=== PATIENT | male | born 1970 | race Caucasian/White ===

== ENCOUNTER 2020-04-06 23:58 | Emergency (ER) | payer OTHER, MEDICAID ==
[~2020-04-06] VITALS: Ht 180.3 cm; Wt 91.6 kg
[2020-04-07 00:05] VITALS: BP_SYST 155
--- NOTE | 2020-04-07 00:05 | NUR ---
Patient to ER bed 5 to gown for evaluation. Side rails up. Report given to OCTOBER.
--- NOTE | 2020-04-07 00:10 | NUR ---
PT AAO AND AMBULATORY C/O WORSENING TOOTH PAIN SINCE THURSDAY. PT WAS SCHEDULED TO HAVE A TOOTH EXTRACTION ON THE RIGHT SIDE BUT WAS CANCELLED AND RESCHEDULED TIL NEXT WEEK.PT REPORTS 10/10 PAIN IN MOUTH.
--- NOTE | 2020-04-07 00:15 | NUR ---
ER at bedside examining patient.
[2020-04-07] MEDS ORDERED: cefTRIAXone 1 GM in LIDOCAINE 1%, 20 ML MDV 2.1 ML IM ONE (00:30)
[2020-04-07] MEDS ORDERED: KETOROLAC TROMETHAMINE 60 MG/2 ML VIAL IM ONE (00:30)
[2020-04-07 00:59] VITALS: BP_SYST 155
--- NOTE | 2020-04-07 00:59 | NUR ---
Patient given written and verbal discharge instructions and verbalizes understanding. ER MD discussed with patient the results and treatment provided. Patient in stable condition. ID arm band removed. Rx of Penicillin VK 250 mg and Ibuprofen 800 mg given. Patient educated on pain management and to follow up with PMD. Pain Scale 4/10. Opportunity for questions provided and answered. Medication side effect fact sheet provided.
== END 2020-04-07 00:59 | disposition home or self-care (01) ==
LOC: SED 23:58
DX: K05.10 Chronic gingivitis, plaque induced (principal); K08.89 Other specified disorders of teeth and supporting structures; I10 Essential (primary) hypertension; G43.909 Migraine, unspecified, not intractable, without status migrainosus; Z88.5 Allergy status to narcotic agent
CPT/HCPCS: 96372; 99284; J0696; J1885; J2001

== ENCOUNTER 2022-02-08 03:10 | Emergency (ER) | payer OTHER, MEDICAID ==
[~2022-02-08] VITALS: Ht 180.3 cm; Wt 86.2 kg
[2022-02-08 03:17] VITALS: BP_SYST 133
--- NOTE | 2022-02-08 03:21 | NUR ---
PATIENT WOKE UP WITH FEELING OF SOMETHING IS IN HIS EYE, PAIN AND IRRITATION INCREASING. NO TRAUMA NOTED. PATIENT BROUGHT BACK TO BED 2.
[2022-02-08] MEDS ORDERED: TRAM50TA PO (05:02)
[2022-02-08] MEDS ORDERED: OFLO5DRO6 LEFT EYE (05:02)
[2022-02-08] MEDS ORDERED: NAPR-686 PO (05:02)
[2022-02-08] MEDS ORDERED: traMADol HCL HCL 50 MG TABLET (ULTRAM) ONE (05:11)
--- NOTE | 2022-02-08 05:14 | NUR ---
Patient given written and verbal discharge instructions and verbalizes understanding. ER MD discussed with patient the results and treatment provided. Patient in stable condition. ID arm band removed. IV catheter removed intact and dressing applied, no active bleeding. Rx of NAPROXEN given. Patient educated on pain management and to follow up with PMD. Pain Scale . Opportunity for questions provided and answered. Medication side effect fact sheet provided.
[2022-02-08] MEDS ORDERED: traMADol HCL HCL 50 MG TABLET (ULTRAM) PO ONE (05:15)
== END 2022-02-08 05:14 | disposition home or self-care (01) ==
LOC: SED 03:10
DX: H16.002 Unspecified corneal ulcer, left eye (principal); H57.12 Ocular pain, left eye; I10 Essential (primary) hypertension; Z88.5 Allergy status to narcotic agent; Z79.899 Other long term (current) drug therapy
CPT/HCPCS: 99283